=== PATIENT | male | born 1995 | race Caucasian/White ===

== ENCOUNTER 2016-04-29 23:52 | Emergency (ER) | payer SELFPAY ==
[~2016-04-29] VITALS: Ht 167.6 cm; Wt 90.7 kg
--- NOTE | 2016-04-30 01:06 | ED GI/GU/ABDOMINAL COMPLAINT ---
History of Present Illness General Chief Complaint: Male Genitourinary Problems Stated Complaint: UNABLE TO URINATE S/P SURGERY TODAY Source: patient, family Exam Limitations: no limitations Vital Signs & Intake/Output Vital Signs & Intake/Output Vital Signs Date Time Temp Pulse Resp B/P Pulse O2 O2 Flow FiO2 Ox Delivery Rate 04/30 0009 98.9 69 20 156/70 97 Room Air Allergies Coded Allergies: No Known Allergies (04/30/16) Triage Note: PT TO ED S/P HIP SCOPE AT 0800 TODAY. PT STATES THAT SINCE THEN HE HAS NOT BEEN ABLE TO URINATE. PT IS ONLY ABLE TO URINATE SMALL AMOUNTS BUT FEELS THAT BLADDER IS FULL. PT C/O PRESSURE AND STINGING TO BLADDER AREA. Triage Nurses Notes Reviewed? yes Onset: Gradual Duration: hour(s):, constant, continues in ED, getting worse Quality/Severity: fullness Location: suprapubic Activities at Onset: rest HPI: Patient presents for evaluation of an inability to urinate and lower abdominal pain began gradually after hip arthroscopy earlier today. Past History Travel History Traveled to [place] past 21 day No Medical History Any Pertinent Medical History? see below for history Surgical History Surgical History: see HPI Psychosocial History What is your primary language Kazakh Tobacco Use: Never used Family History Hx Contributory? No Review of Systems Review of Systems Constitutional: Reports: no symptoms. EENTM: Reports: no symptoms. Respiratory: Reports: no symptoms. Cardiovascular: Reports: no symptoms. GI: Reports: no symptoms. Genitourinary: Reports: see HPI. Musculoskeletal: Reports: no symptoms. Skin: Reports: no symptoms. Neurological/Psychological: Reports: no symptoms. Hematologic/Endocrine: Reports: no symptoms. Immunologic/Allergic: Reports: no symptoms. All Other Systems: Reviewed and Negative Physical Exam Physical Exam Gastrointestinal: SEE BELOW Comments: Gen.: Well-nourished, well-developed, no acute respiratory distress. Head: Normocephalic, atraumatic. Eyes: Normal inspection bilaterally Ears: Normal inspection bilaterally Nose: Normal inspection Throat/mouth : Moist mucosa Neck: Supple, full range of motion, no goiter Lungs: Quiet respirations Back: Normal range of motion Abdomen: Soft, nontender, nondistended, normal bowel sounds present (patient examined after Beard catheter placement) Extremities: Normal range of motion grossly, equal radial pulses, no cyanosis clubbing or edema Neurologic: Cranial nerves grossly intact, speech is clear Skin: warm and dry Psychiatric: Calm, cooperative, no apparent delusions or hallucinations Core Measures ACS in differential dx? No Severe Sepsis Present: No Septic Shock Present: No Progress Differential Diagnosis: urinary retention, UTI/pyelo Plan of Care: Orders Procedure Date/time Status URINALYSIS 04/30 37 Complete Beard, Insertion/Removal/Asses 04/30 34 Active Laboratory Tests 04/30/16 0039: Urine Color YEL, Urine Clarity CLEAR, Urine pH 6.0, Ur Specific [place] 1.010, Urine Protein NEG, Urine Ketones NEG, Urine Nitrite NEG, Urine Bilirubin NEG, Urine Urobilinogen 0.2, Ur Leukocyte Esterase NEG, Ur Microscopic EXAM NOT REQUIRED, Urine Hemoglobin NEG, Urine Glucose 100 H Initial ED EKG: none Departure Departure Disposition: HOME OR SELF CARE Condition: Stable Clinical Impression Primary Impression: Urinary retention Referrals: UNKNOWN (PCP/Family) Additional Instructions: The reason why you can't urinate is very likely due to the anesthesia you received. This should resolve over time. However the scopolamine patch you are wearing to help with nausea and vomiting is also a potential culprit. Please returned to the emergency department in 12-24 hours for reevaluation and possible removal of the Beard catheter. Please notify your surgeon of this emergency department visit on Monday. Return if any concerns or sudden worsening. Departure Forms: Customer Survey General Discharge Information
[2016-04-30 01:16] VITALS: BP 125/57
== END 2016-04-30 01:23 ==
LOC: ERH 23:52
DX: R33.9 Retention of urine, unspecified (principal)
CPT/HCPCS: 81003

== ENCOUNTER 2016-04-30 12:13 | Emergency (ER) | payer SELFPAY ==
[~2016-04-30] VITALS: Ht 167.6 cm; Wt 90.7 kg
--- NOTE | 2016-04-30 13:08 | ED GI/GU/ABDOMINAL COMPLAINT ---
History of Present Illness General Chief Complaint: Male Genitourinary Problems Stated Complaint: URINE CATH REMOVAL Source: patient, family (mother), old records Exam Limitations: no limitations Vital Signs & Intake/Output Vital Signs & Intake/Output Vital Signs Date Time Temp Pulse Resp B/P Pulse O2 O2 Flow FiO2 Ox Delivery Rate 04/30 1450 96.0 54 18 121/60 100 Room Air 04/30 1217 97.4 58 14 122/72 100 Room Air Allergies Coded Allergies: No Known Allergies (04/30/16) Triage Note: 2 REMOVAL. STATES HE HAD DOZIER PLACED AROUND MIDNIGHT DUE TO INABILITY TO URINATE, S/P HIP SURGERY. WAS INSTRUCTED TO RETURN TODAY. URINE DRAINING IN LEG BAG - CLEAR YELLOW. PT DENIES COMPLAINTS. Triage Nurses Notes Reviewed? yes Onset: Abrupt Duration: day(s): (1), better Timing: single episode today Quality/Severity: aching Severity Numbers: 1 Location: urethral Radiation: no radiation Activities at Onset: s/p surgery Prior Abdominal Problems: none No Modifying Factors: none Associated Symptoms: denies HPI: 20-year-old male presents emergency room with his mother for Dozier catheter removal. The patient was seen here earlier this morning for Dozier catheter placement. He had a hip surgery yesterday performed by Dr. Villeda, the urinary retention was attributed to the anesthesia he had received. The patient denies any penile pain or scrotal pain no hematuria dysuria. he denies any difficulty making urine in the Dozier bag he is otherwise without any complaints currently no fever no chills no vomiting (VIGNESH CHRISTENSEN) Past History Travel History Traveled to [place] past 21 day No Medical History Any Pertinent Medical History? none Neurological: NONE EENT: NONE Cardiovascular: NONE Respiratory: NONE Gastrointestinal: NONE Hepatic: NONE Renal: NONE Musculoskeletal: NONE Psychiatric: NONE Endocrine: NONE Blood Disorders: NONE Cancer(s): NONE DUST COLLECTOR/Reproductive: NONE Surgical History Surgical History: none Psychosocial History What is your primary language Monegasque Tobacco Use: Never used Family History Hx Contributory? No (VIGNESH CHRISTENSEN) Review of Systems Review of Systems Constitutional: Reports: see HPI. All Other Systems: Reviewed and Negative Comments Review of systems: See HPI, All other systems negative. Constitutional, no chills no fever, no malaise HEENT: No visual changes no sore throat no congestion Cardiovascular: No chest pain , no palpitation Skin, no rashes, no change in skin Respiratory: No dyspnea no cough n GI: No nausea no vomiting : No dysuria No hematuria, no frequency, no discharge Muscle skeletal: No joint pain, no back pain, no neck pain, Neurologic: No numbness no headache Psych: No stress . Heme/endocrine: No bruising no bleeding Immunology: No lymphadenopathy (VIGNESH CHRISTENSEN) Physical Exam Physical Exam General Appearance: well developed/nourished, no apparent distress, alert, awake Gastrointestinal: normal bowel sounds, soft, non-tender Comments: Well-developed well-nourished patient in no apparent distress. HEENT: Atraumatic, extraocular motion intact Neck: Supple, FROM, Back: FROM Cardiovascular: Regular rate and rhythms Respiratory: No respiratory distress. Patient speaking in full complete sentences. Breath sounds clear to auscultation bilaterally: NO W/R/R Abdomen: Soft nontender Male : Normal external genitalia, testes nontender, No lesions/discharge. Extremities: full range of motion Neuro: Alert and oriented x3 Skin: Warm & dry;No appreciable rash on exposed skin Psych: Mood affect normal, normal memory normal judgment. Core Measures ACS in differential dx? No Severe Sepsis Present: No Septic Shock Present: No (VIGNESH CHRISTENSEN) Progress Differential Diagnosis: epididymitis, prostatitis, urinary retention, urethritis , UTI/pyelo Plan of Care: Orders Procedure Date/time Status Regular Diet 04/30 D Active dozier catheter removed by me without complication with understanding the pt will be trialed here first prior to discharge to ensure he can urinate on his own first. they feel comfortable with plan Case was discussed with Dr. Renteria agrees with plan 04/30/2016 3:34:29 PM patient was able to successfully urinate on his own. They feel comfortable with discharge discussed with them return precautions they feel comfortable with this plan cleared for discharge (VIGNESH CHRISTENSEN) Initial ED EKG: none (VIGNESH CHRISTENSEN) Departure Departure Disposition: HOME OR SELF CARE Condition: Stable Clinical Impression Primary Impression: Urinary retention Secondary Impressions: Encounter for Dozier catheter removal Referrals: UNKNOWN (PCP/Family) Additional Instructions: return to the ER with any concerns or if you redevelop your symptoms. Departure Forms: Customer Survey General Discharge Information (VIGNESH CHRISTENSEN) PA/CUSTOMS GUARD Co-Sign Statement Statement: ED Attending supervision documentation- [] I saw and evaluated the patient. I have also reviewed all the pertinent lab results and diagnostic results. I agree with the findings and the plan of care as documented in the PA's/CUSTOMS GUARD's documentation. [X] I have reviewed the ED Record and agree with the PA's/CUSTOMS GUARD's documentation. [] Additions or exceptions (if any) to the PAs/CUSTOMS GUARD's note and plan are summarized below: [] (ROSENDA GERBER,JOHNSON Lorenz)
[2016-04-30 14:50] VITALS: BP 121/60
== END 2016-04-30 15:46 ==
LOC: ERH 12:13
DX: R33.9 Retention of urine, unspecified (principal); T83.098A Other mechanical complication of other urinary catheter, initial encounter